=== PATIENT | male | born 1990 | race African-American/Black ===

== ENCOUNTER 2022-08-12 14:15 | Outpatient (RCR) | payer OTHER | END 2022-08-13 | disposition home or self-care (01) | LOC: WSOT | DX: M25.631 Stiffness of right wrist, not elsewhere classified (principal) ==

== ENCOUNTER 2022-08-28 09:00 | Outpatient (RCR) | payer OTHER | END 2022-09-10 | disposition home or self-care (01) | LOC: WSOT | DX: M25.631 Stiffness of right wrist, not elsewhere classified (principal) ==